=== PATIENT | female | born 1975 | race Caucasian/White ===

== ENCOUNTER → 2016-08-31 | Day surgery (SDC) | payer OTHER | END | disposition home or self-care (01) | LOC: SDC 09:13 | DX: N20.0 Calculus of kidney (principal); M19.90 Unspecified osteoarthritis, unspecified site; F32.9 Major depressive disorder, single episode, unspecified; F41.9 Anxiety disorder, unspecified; G43.909 Migraine, unspecified, not intractable, without status migrainosus; Z86.19 Personal history of other infectious and parasitic diseases; Z98.890 Other specified postprocedural states; Z79.899 Other long term (current) drug therapy; Z88.0 Allergy status to penicillin; Z88.8 Allergy status to other drugs, medicaments and biological substances; Z87.442 Personal history of urinary calculi; Z87.440 Personal history of urinary (tract) infections | CPT/HCPCS: C1758; C2617; J0696; J1885; J2704; Q9967 ==

== ENCOUNTER 2016-09-04 16:12 | Emergency (ER) | payer OTHER | END 2016-09-04 17:45 | disposition home or self-care (01) | LOC: ER 16:12 | DX: G89.18 Other acute postprocedural pain (principal); R10.9 Unspecified abdominal pain; F17.210 Nicotine dependence, cigarettes, uncomplicated; Z87.442 Personal history of urinary calculi; Z88.0 Allergy status to penicillin ==

== ENCOUNTER 2016-09-12 21:28 | Emergency (ER) | payer OTHER | END 2016-09-12 22:37 | disposition home or self-care (01) | LOC: ER 21:28 | DX: N23 Unspecified renal colic (principal); K12.0 Recurrent oral aphthae; M79.604 Pain in right leg; F17.210 Nicotine dependence, cigarettes, uncomplicated; Z87.442 Personal history of urinary calculi; Z88.0 Allergy status to penicillin; Z88.8 Allergy status to other drugs, medicaments and biological substances ==

== ENCOUNTER → 2016-10-08 | Day surgery (SDC) | payer OTHER ==
[~2016-10-08] VITALS: Ht 160 cm; Wt 49.9 kg
== END | disposition home or self-care (01) ==
LOC: SDC 06:50
DX: N20.0 Calculus of kidney (principal); Z87.442 Personal history of urinary calculi; M19.90 Unspecified osteoarthritis, unspecified site; F41.9 Anxiety disorder, unspecified; F32.9 Major depressive disorder, single episode, unspecified; Z86.19 Personal history of other infectious and parasitic diseases; Z79.899 Other long term (current) drug therapy; Z88.0 Allergy status to penicillin; F17.200 Nicotine dependence, unspecified, uncomplicated; Z87.440 Personal history of urinary (tract) infections
CPT/HCPCS: C1894; C2617; J1885; J2704; Q9967

== ENCOUNTER → 2016-10-22 | Day surgery (SDC) | payer OTHER | END | disposition home or self-care (01) | LOC: SDC 06:37 | DX: N20.0 Calculus of kidney (principal); M19.90 Unspecified osteoarthritis, unspecified site; Z79.1 Long term (current) use of non-steroidal anti-inflammatories (NSAID); Z88.0 Allergy status to penicillin; Z79.899 Other long term (current) drug therapy; Z88.5 Allergy status to narcotic agent; Z88.8 Allergy status to other drugs, medicaments and biological substances; Z98.51 Tubal ligation status; Z86.19 Personal history of other infectious and parasitic diseases; Z86.69 Personal history of other diseases of the nervous system and sense organs | CPT/HCPCS: C1758; C2617; J2704; Q9967 ==

== ENCOUNTER → 2016-11-19 | Day surgery (SDC) | payer OTHER | END | disposition home or self-care (01) | LOC: SDC 08:29 | DX: N20.0 Calculus of kidney (principal); N28.89 Other specified disorders of kidney and ureter; M19.90 Unspecified osteoarthritis, unspecified site; F17.210 Nicotine dependence, cigarettes, uncomplicated; Z86.19 Personal history of other infectious and parasitic diseases; Z86.69 Personal history of other diseases of the nervous system and sense organs; Z88.0 Allergy status to penicillin; Z88.5 Allergy status to narcotic agent; Z88.8 Allergy status to other drugs, medicaments and biological substances; Z79.1 Long term (current) use of non-steroidal anti-inflammatories (NSAID); Z79.899 Other long term (current) drug therapy; Z98.51 Tubal ligation status; Z98.890 Other specified postprocedural states | CPT/HCPCS: C1758; C2617; J1580; J2704; J3370; J7050; Q9967 ==